=== PATIENT | female | born 2005 | race Caucasian/White ===

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

== ENCOUNTER 2024-01-30 19:16 | Emergency (ER) | payer MEDICAID, SELFPAY ==
--- NOTE | 2024-01-30 19:18 | XRR_ITS ---
PROCEDURE INFORMATION: Exam: XR Right Hand Exam date and time: 01/30/2024 7:58 PM Age: 19 years old Clinical indication: Injury or trauma; Other: New Era middle finger pop after pushing off it. Other: Pain TECHNIQUE: Imaging protocol: Radiologic exam of the right hand. Views: 3 or more views. COMPARISON: No relevant prior studies available. FINDINGS: Bones/joints: Normal. No dislocation Soft tissues: Normal. XR/XR hand RT min 3V* [id number] IMPRESSION: No acute findings.
[2024-01-30 19:22] VITALS: BP 142/91; PULSE 103; RESP 16; TEMP 37.1; O2SAT 96
--- NOTE | 2024-01-30 19:43 | W.ED.EXTPRO ---
HPI - Extremity Problem General: Chief complaint: Extremity Problem,Nontraumatic Stated complaint: right hand injury Time Seen by Provider: 01/30/24 19:38 PFSH ED PFSH: Social History Smoking and tobacco/nicotine status: never used tobacco/nicotine Female Reproductive History: Date of last menstrual period: 01/21/24 Course Vital Signs: Vital signs: Vital Signs Temperature 98.8 F 01/30/24 19:22 Pulse Rate 103 H 01/30/24 19:22 Respiratory Rate 16 01/30/24 19:22 Blood Pressure 142/91 01/30/24 19:22 Pulse Oximetry 96 01/30/24 19:22 Oxygen Delivery Me thod Room Air 01/30/24 19:22 Discharge Plan Discharge Condition: Stable Prescriptions: No Action No Known Home Medications Referrals: Horacio Carlisle MD [Primary Care Provider] - Coding Level of Care Code ED Vacuum Truck Driver for Juan Manuel Soria
--- NOTE | 2024-01-30 19:46 | W.ED.EXTPRO ---
HPI - Extremity Problem General: Chief complaint: Extremity Problem,Nontraumatic Stated complaint: right hand injury Time Seen by Provider: 01/30/24 19:38 Source: patient Mode of arrival: ambulatory Limitations: no limitations History of Present Illness: [id number] female states she is getting out of bed she had placed her right hand down to get out of bed and felt a pop in her right middle finger she states she thinks she sprained it but she went to make sure is not fractured she is able to have full range of motion rates her pain a 3 out of 10 currently Associated symptoms: Deny chest pain, fever(s) or rash Review of Systems Const: Denies: fever(s), chills, body aches or change in appetite ENMT: Denies: throat pain or dental pain Card: Denies: chest pain Resp: Denies: dyspnea GI: Denies: abdominal pain, nausea, vomiting or diarrhea Musc: Reports: extremity pain; Denies: neck pain or back pain Skin/Breast: Denies: rash Neuro: Denies: headache(s) PFSH ED PFSH: Social History Smoking and tobacco/nicotine status: never used tobacco/nicotine Female Reproductive History: Date of last menstrual period: 01/21/24 Physical Exam Const: COMMON NORMALS: no acute distress, patient oriented x3 and healthy appearing HENMT: COMMON NORMALS: normocephalic and atraumatic HEAD & SCALP: normocephalic and atraumatic Neck/C-Spine: COMMON NORMALS: full ROM Chest: COMMONS NORMALS: normal inspection of the chest Resp: COMMON NORMALS: normal respiratory effort Extremity: NARRATIVE EXTREMITY EXAM: Some slight tenderness over right middle finger no obvious deformity she has full range of motion Neuro: COMMON NORMALS: patient oriented x3, moves all extremities and no focal motor deficits Psych: COMMON NORMALS: mental status grossly normal, Normal thought process present and cooperative THOUGHT PROCESS: Normal thought process present Skin: COMMON NORMALS: no rashes or lesions noted and no wounds GENERAL SKIN EXAM: no rashes or lesions noted Course Vital Signs: Vital signs: Vital Signs Temperature 98.8 F 01/30/24 19:22 Pulse Rate 103 H 01/30/24 19:22 Respiratory Rate 16 01/30/24 19:22 Blood Pressure 142/91 01/30/24 19:22 Pulse Oximetry 96 01/30/24 19:22 Oxygen Delivery Me thod Room Air 01/30/24 19:22 MDM - Extremity (Nontraumatic) Medical Decision Making Patient presents with a finger sprain to right middle finger x-ray shows no fracture she is to ice and take Motrin for pain she is stable for discharge she is follow-up with PCP return if worsening she understands agrees to plan. Medical Records I reviewed the patient's medical records. XR interpretation done by ED provider, pending radiology final review ED provider radiology interpretation(s): xr hand: no acute abnormality Discharge Plan Discharge Patient Disposition: Home Clinical Impression: Sprain of finger, right Qualifiers: Encounter type: initial encounter Finger: middle finger Sprain of finger site: unspecified site Qualified Code(s): S63.612A - Unspecified sprain of right middle finger, initial encounter Condition: Stable Prescriptions: No Action No Known Home Medications Discharge Orders: Discharge ED (Routine); Ordered 01/30/24 Ordered By: Floyd Wild Referrals: Horacio Carlisle MD [Primary Care Provider] - 1-3 days Discharge Diet: Advance as tolerated Discharge Activity: Resume usual activity Patient Instructions: Finger Sprain (ED) Coding Level of Care Code ED Completions Engineer for Juan Manuel Soria
[2024-01-30] MEDS: naproxen 500 mg Tablet PO (20:00)
== END 2024-01-30 20:30 | disposition home or self-care (01) ==
PROVIDERS: Emergency Provider Emergency Medicine; PCP Obstetrics & Gynecology
DX: S63.612A Unspecified sprain of right middle finger, initial encounter (principal); X50.9XXA Other and unspecified overexertion or strenuous movements or postures, initial encounter
CPT/HCPCS: 73130; 99283

== ENCOUNTER 2025-03-22 14:12 | Emergency (ER) | payer SELFPAY ==
--- NOTE | 2025-03-22 14:18 | XRR_ITS ---
PROCEDURE INFORMATION: Exam: XR Right Foot Exam date and time: 03/22/2025 2:57 PM Age: 20 years old Clinical indication: Right; RT foot pain/swelling; No known injury TECHNIQUE: Imaging protocol: Radiologic exam of the right foot. Views: 3 or more views. COMPARISON: No relevant prior studies available. FINDINGS: Bones/joints: Normal. No acute displaced fracture or dislocation. Soft tissues: Normal. XR/XR foot RT min 3V* [id number] IMPRESSION: No acute findings.
[2025-03-22 14:37] VITALS: BP 134/83; PULSE 90; RESP 18; TEMP 36.7; O2SAT 100; BMI 43.2
--- NOTE | 2025-03-22 17:12 | W.ED.EXTPRO ---
HPI - Extremity Problem General: Chief complaint: Extremity Problem,Nontraumatic Stated complaint: R foot pain Time Seen by Provider: 03/22/25 16:53 Source: patient Mode of arrival: ambulatory Limitations: no limitations History of Present Illness: 20yo female presents with friend for evaluation of right foot swelling that has been ongoing since 2019. Patient reports that she does not have swelling of the left foot, only the right. States that it does hurt with certain movements. She does use a compression sock on the foot to help with the swelling. States she also will take a bath to help with swelling. She denies any known injury of the area or any other concerns at this time. Associated symptoms: Deny fever(s) Related Data Home Medications ?Medication ?Instructions ?Recorded ?Confirmed No Known Home Medications 10/14/19 10/14/19 Allergies Allergy/AdvReac Type Severity Reaction Status Date / Time shellfish derived Allergy ALGY-Anaphy Verified 03/22/25 14:41 laxis Review of Systems Const: Denies: fever(s), chills or body aches Musc: Reports: extremity swelling (Right foot) [facility] ED PFSH: Social History Smoking and tobacco/nicotine status: never used tobacco/nicotine Physical Exam Const: COMMON NORMALS: no acute distress, patient oriented x3, healthy appearing and alert GENERAL APPEARANCE: cooperative ORIENTATION/CONSCIOUSNESS: Yes awake OTHER: Patient is sitting upright on the side of the stretcher no acute distress. She is able to give history with no difficulty. She is interactive with exam appropriately. Friend is at bedside HENMT: COMMON NORMALS: normocephalic and atraumatic HEAD & SCALP: normocephalic and atraumatic Chest: CHEST: Yes Symmetrical chest wall rise Resp: COMMON NORMALS: normal respiratory effort EFFORT & INSPECTION: Yes able to speak in complete sentences Extremity: COMMON NORMALS: full ROM RIGHT LOWER EXTREMITY: Yes foot & digits (Mild swelling, no significant edema noted) Right foot and digits: Yes palpation (No specific tenderness to palpation) and Yes ROM (FROM) EXTREMITY IMAGE (FRONT):  1. Indicated area of discomfort. No tenderness to palpation Neuro: COMMON NORMALS: patient oriented x3 SENSORIUM/ORIENTATION: Yes alert Psych: COMMON NORMALS: cooperative Course Vital Signs: Vital signs: Vital Signs Temperature 98.1 F 03/22/25 14:37 Pulse Rate 90 03/22/25 14:37 Respiratory Rate 18 03/22/25 14:37 Blood Pressure 134/83 03/22/25 14:37 Pulse Oximetry 100 03/22/25 14:37 Oxygen Delivery Me thod Room Air 03/22/25 14:37 MDM - Extremity (Nontraumatic) Medical Decision Making 20yo female here for evaluation of a right foot that has been swelling intermittently for the past 5 years. No specific injury to the area. Pain across the top of the foot at the ankle and along the medial aspects with movements. No specific tenderness palpation. Patient denies any known injury to the area. Patient is nontoxic in appearance. Vital signs are stable. X-ray imaging obtained prior to room placement. No fracture or acute bony abnormality noted on the x-ray. Discussed these findings with patient. No significant tenderness noted on exam. No tenderness palpation. Full range of motion of the foot with no difficulty. Discussed with patient we are not able to determine the etiology of the swelling today, but can place referral for podiatry for her to follow-up. Encouraged patient to elevate the foot and ensure she is wearing appropriate footwear. Recommend she follow-up with podiatry as soon as possible. Return precautions provided. Patient states understanding and has no further questions or concerns at this time. Lab Data Radiology Impressions Foot X-Ray 03/22/25 14:18 IMPRESSION: No acute findings. XR interpretation done by ED provider, pending radiology final review Discharge Plan Discharge Patient Disposition: Home Clinical Impression: Right foot pain, Swelling of right foot Condition: Stable Prescriptions: No Action No Known Home Medications Discharge Orders: Discharge ED (Routine); Ordered 03/22/25 Ordered By: Huber Parikh Patient Instructions: Opioid Safety, Pain Management, Patient Portal & Fatou Instructions Activity Restrictions/Additional Instructions: No fracture or acute abnormality was noted on the x-ray today Elevate the foot to help with swelling A referral has been placed to podiatry for further evaluation of the swelling and pain that has been ongoing over the past 5 years Please follow-up with podiatry as soon as possible Return to the emergency department if any rapid worsening symptoms and as needed Print Language: Indian Coding Level of Care Code ED Consulting Networking Engineer for Juan Manuel Soria
[2025-03-22 17:32] VITALS: BP 160/84; PULSE 83; O2SAT 100
--- NOTE | 2025-03-23 09:28 | DCPLANNER ---
messaged podiatry for er f/u
== END 2025-03-22 17:39 | disposition home or self-care (01) ==
PROVIDERS: Emergency Provider Nurse Practitioner
DX: R60.0 Localized edema (principal); M79.671 Pain in right foot
CPT/HCPCS: 73630; 99283